=== PATIENT | male | born 1995 | race Caucasian/White ===

== ENCOUNTER 2017-03-11 11:07 | Emergency (ER) | payer BC, OTHER ==
[2017-03-11] MEDS ORDERED: Ondansetron INJ* 2 MG/ML VIAL IV ONE (11:35)
[2017-03-11] MEDS ORDERED: NS 0.9% 1000 ML* 2,000 ML IV ONE (11:35)
[2017-03-11] MEDS ORDERED: Ketorolac INJ* 30 MG/ML 1 ML VIAL IV PUSH ONE (11:36)
[2017-03-11 11:58] LABS: Hematocrit 43 % (42-52); Hemoglobin 14.7 g/dl (14.0-18.0); Mean Corpuscular HGB Conc 34 g/dl (31-36); Mean Corpuscular Hemoglobin 31 pg (27-31); Mean Corpuscular Volume 93 fL (80-94); Mean Platelet Volume 7 um3 (7.4-10.4); Red Blood Count 4.68 10^6/ul (4.0-5.4); Red Cell Distribution Width 13 % (10.5-15); White Blood Count 19.2 10^3/ul (3.5-10.8)
[2017-03-11 12:18] LABS: ALT 39 U/L (7-52); AST 51 U/L (13-39); Albumin 5.2 g/dL (3.2-5.2); Alkaline Phosphatase 77 U/L (34-104); Anion Gap 17 mmol/L (2-11); BUN/Creatinine Ratio 21.9 (8-20); Blood Urea Nitrogen 23 mg/dL (6-24); C Reactive Protein < 1.00 mg/L (< 5.00); CO2 Carbon Dioxide 19 mmol/L (22-32); Chloride 101 mmol/L (101-111); EGFR African American 113.6 (>60); EGFR Non-African American 88.3 (>60); Globulin 2.8 g/dL (2-4); Glucose 74 mg/dL (70-100); Lipase 53 U/L (11.0-82.0); Magnesium 1.9 mg/dL (1.9-2.7); Potassium 4.3 mmol/L (3.5-5.0); Sodium 137 mmol/L (133-145)
[2017-03-11 14:39] VITALS: BP 113/59
--- NOTE | 2017-03-11 15:00 | ED ---
Juanita Hernandez Emily, scribed for Wilbert Covarrubias MD on 03/11/17 at 1141 . Substance Abuse/Use - HPI Summary HPI Summary: This patient is a 21 year old M presenting to [facility] accompanied by friend with a chief complaint of EtOH abuse last night. The patient rates the pain 0/10 in severity. Symptoms aggravated by nothing. Symptoms alleviated by nothing. Patient reports nausea, vomiting, lightheadedness, headache, and weakness. - History Of Current Complaint Chief Complaint: EDNauseaVomitDiarrh Stated Complaint: HANGOVER Time Seen by Provider: 03/11/17 11:15 Hx Obtained From: Patient Severity Initially: Mild Severity Currently: Mild Aggravating Factor(s): Nothing Alleviating Factor(s): Nothing Associated Signs And Symptoms: Nausea, Vomiting, Other: - Positive lightheadedness, headache, and weakness. - Allergies/Home Medications Allergies/Adverse Reactions: Allergies Allergy/AdvReac Type Severity Reaction Status Date / Time No Known Allergies Allergy Verified 07/21/16 14:30 PMH/Surg Hx/FS Hx/Imm Hx Previously Healthy: No Endocrine/Hematology History: Denies: Hx Diabetes, Hx Thyroid Disease Cardiovascular History: Denies: Hx Hypertension, Hx Pacemaker/ICD Respiratory History: Denies: Hx Asthma, Hx Chronic Obstructive Pulmonary Disease (COPD) GI History: Denies: Hx Ulcer History: Denies: Hx Renal Disease Sensory History: Denies: Hx Hearing Aid Psychiatric History: Denies: Hx Panic Disorder - Surgical History Surgery Procedure, Year, and Place: SPLEENECTOMY Infectious Disease History: No Infectious Disease History: Denies: Hx Hepatitis, Hx Human Immunodeficiency Virus (HIV), Traveled Outside the [place] in Last 30 Days - Family History Known Family History: Positive: None - Social History Occupation: Student Alcohol Use: Occasionally Substance Use Type: Reports: None Smoking Status (MU): Never Smoked Tobacco Review of Systems Positive: Vomiting, Nausea Neurological: Other - Lightheadedness Positive: Headache, Weakness All Other Systems Reviewed And Are Negative: Yes Physical Exam - Summary Physical Exam Summary: VITAL SIGNS: Reviewed. GENERAL: ~Patient is a well-developed and nourished male who is lying comfortable in the stretcher. ~Patient is not in any acute respiratory distress. HEAD AND FACE: No signs of trauma. ~No ecchymosis, hematomas or skull depressions. No sinus tenderness. Nasal mucosa dry. EYES: PERRLA, EOMI x 2, No injected conjunctiva, no nystagmus. EARS: Hearing grossly intact. Ear canals and tympanic membranes are within normal limits. MOUTH: Oropharynx within normal limits. Dehydrated, oral mucosa dry. NECK: Supple, trachea is midline, no adenopathy, no JVD, no carotid bruit, no c- spine tenderness, neck with full ROM. CHEST: Symmetric, no tenderness at palpation LUNGS: Clear to auscultation bilaterally. No wheezing or crackles. CVS: Slightly tachycardic, S1 and S2 present, no murmurs or gallops appreciated. ABDOMEN: Soft, non-tender. No signs of distention. No rebound no guarding, and no masses palpated. Bowel sounds are normal. EXTREMITIES: FROM in all major joints, no edema, no cyanosis or clubbing. NEURO: Alert and oriented x 3. No acute neurological deficits. Speech is normal and follows commands. SKIN: Dry and warm Triage Information Reviewed: Yes Vital Signs On Initial Exam: Initial Vitals Temp Pulse Resp BP Pulse Ox 98.3 F 110 18 140/68 98 03/11/17 11:08 03/11/17 11:08 03/11/17 11:08 03/11/17 11:08 03/11/17 11:08 Vital Signs Reviewed: Yes Diagnostics - Vital Signs Vital Signs Temp Pulse Resp BP Pulse Ox 03/11/17 11:08 98.3 F 110 18 140/68 98 - Laboratory Lab Results: Lab Results 03/11/17 03/11/17 Range/Units 11:49 11:49 WBC 19.2 H (3.5-10.8) 10^3/ul RBC 4.68 (4.0-5.4) 10^6/ul Hgb 14.7 (14.0-18.0) g/dl Hct 43 (42-52) % MCV 93 (80-94) fL MCH 31 (27-31) pg MCHC 34 (31-36) g/dl RDW 13 (10.5-15) % Plt Count 404 (150-450) 10^3/ul MPV 7 L (7.4-10.4) um3 Neut % (Auto) 85.1 H (38-83) % Lymph % (Auto) 8.9 L (25-47) % Dickens % (Auto) 4.7 (1-9) % Eos % (Auto) 0.1 (0-6) % Baso % (Auto) 1.2 (0-2) % Absolute Neuts (auto) 16.4 H (1.5-7.7) 10^3/ul Absolute Lymphs (auto) 1.7 (1.0-4.8) 10^3/ul Absolute Monos (auto) 0.9 H (0-0.8) 10^3/ul Absolute Eos (auto) 0 (0-0.6) 10^3/ul Absolute Basos (auto) 0.2 (0-0.2) 10^3/ul Absolute Nucleated RBC 0.01 10^3/ul Nucleated RBC % 0.1 Sodium 137 (133-145) mmol/L Potassium 4.3 (3.5-5.0) mmol/L Chloride 101 (101-111) mmol/L Carbon Dioxide 19 L (22-32) mmol/L Anion Gap 17 H (2-11) mmol/L BUN 23 (6-24) mg/dL Creatinine 1.05 (0.67-1.17) mg/dL Est GFR ( Amer) 113.6 (>60) Est GFR (Non-Af Amer) 88.3 (>60) BUN/Creatinine Ratio 21.9 H (8-20) Glucose 74 (70-100) mg/dL Calcium 10.0 (8.6-10.3) mg/dL Magnesium 1.9 (1.9-2.7) mg/dL Total Bilirubin 0.60 (0.2-1.0) mg/dL AST 51 H (13-39) U/L ALT 39 (7-52) U/L Alkaline Phosphatase 77 (34-104) U/L C-Reactive Protein < 1.00 (< 5.00) mg/L Total Protein 8.0 (6.4-8.9) g/dL Albumin 5.2 (3.2-5.2) g/dL Globulin 2.8 (2-4) g/dL Albumin/Globulin Ratio 1.9 (1-3) Lipase 53 (11.0-82.0) U/L Result Diagrams: 03/11/17 11:49 03/11/17 11:49 Lab Statement: Any lab studies that have been ordered have been reviewed, and results considered in the medical decision making process. Course/Dx - Course Assessment/Plan: This patient is a 21 year old M presenting to [facility] accompanied by friend with a chief complaint of EtOH abuse last night. The patient rates the pain 0/10 in severity. Symptoms aggravated by nothing. Symptoms alleviated by nothing. Patient reports nausea, vomiting, lightheadedness, headache, and weakness. In the ED course an IV access was obtained. Patient was placed in a director of market intelligence. Patient was started with IV fluids. He was given ZOfran for nausea and vomiting and Toradol for a SIEGEL. Labs without any significant abnormality except for. After hydration and medications he is feeling better. He was given a PO challenge and he had no nausea or vomiting. Patient is hemodynamically stable and A+O x 3. I discussed all the findings and test results with the patient. Patient was instructed to return to the emergency room immediately if any of the symptoms return or worsens. Plan of care was discussed with the patient and understands and agrees. All questions were answered at patient satisfaction. There were no further complaints or concerns. Lung exam before discharge: CTA B/L. Good air exchange. No wheezing or crackles heard. CVS: S1 and S2 present. No murmurs appreciated. Patient is alert and oriented x 3. Patient is hemodynamically stable. Patient will be discharged home with follow up PCP in the next 2-3 days - Diagnoses Differential Diagnosis/HQI/PQRI: Positive: Alcohol Abuse, Alcohol Withdrawal, Other - Nause and vomiting Provider Diagnoses: Nausea and vomiting Discharge - Discharge Plan Condition: Stable Disposition: HOME Patient Education Materials: Acute Nausea and Vomiting (ED) Referrals: [facility] - Curt ENRIQUE [Primary Care Provider] - Additional Instructions: RETURN TO THE EMERGENCY DEPARTMENT FOR CHANGING OR WORSENING SYMPTOMS. The documentation as recorded by the Juanita polanco Emily accurately reflects the service I personally performed and the decisions made by , Wilbert Covarrubias MD.
== END 2017-03-11 14:39 | disposition home or self-care (01) ==
LOC: ED 11:07
DX: R11.2 Nausea with vomiting, unspecified (principal); R51 Headache; R53.1 Weakness; H81.49 Vertigo of central origin, unspecified ear; Z90.81 Acquired absence of spleen
CPT/HCPCS: 36415; 80053; 83690; 83735; 85025; 86140; 96361; 96374; 96375; 99282; J1885; J2405

== ENCOUNTER 2017-10-05 00:41 | Emergency (ER) | payer BC, OTHER ==
[2017-10-05 01:01] LABS: ABS Basophils 0.1 10^3/ul (0-0.2); ABS Eosinophils 0.3 10^3/ul (0-0.6); ABS Monocytes 1.1 10^3/ul (0-0.8); ABS Neutrophils 6.4 10^3/ul (1.5-7.7); ABS Nucleated RBC 0 10^3/ul; Eosinophil % 2.6 % (0-6); Hematocrit 43 % (42-52); Hemoglobin 14.7 g/dl (14.0-18.0); Lymphocyte % 33.8 % (25-47); Mean Corpuscular HGB Conc 34 g/dl (31-36); Mean Corpuscular Hemoglobin 31 pg (27-31); Mean Corpuscular Volume 92 fL (80-94); Mean Platelet Volume 6.6 um3 (7.4-10.4); Nucleated Red Blood Cells % 0; Platelet Count 440 10^3/ul (150-450); Red Blood Count 4.69 10^6/ul (4.0-5.4); Red Cell Distribution Width 13 % (10.5-15); White Blood Count 11.9 10^3/ul (3.5-10.8)
[2017-10-05 01:18] LABS: EGFR Non-African American 111.2 (>60)
[2017-10-05] MEDS ORDERED: Pantoprazole IV* 40 MG IV ONE (03:06)
[2017-10-05] MEDS ORDERED: Ketorolac INJ* 30 MG/ML 1 ML VIAL IV PUSH ONE (03:06)
[2017-10-05] MEDS ORDERED: Metoclopramide IV* 5 MG/ML 2 ML VIAL IV ONE (03:06)
[2017-10-05] MEDS ORDERED: NS 0.9% 1000 ML* 1,000 ML IV ONE (03:06)
[2017-10-05] MEDS ORDERED: Iohexol 300* (CONTRAST) 10 ML SDV IV ONE (03:16)
[2017-10-05 06:13] VITALS: BP 124/69
--- NOTE | 2017-10-05 08:17 | RAD ---
INDICATION: Nausea, vomiting, abdominal pain following alcohol ingestion. Previous pancreatic injury and pancreatitis. Post splenectomy. Remote football injury. COMPARISON: No relevant prior exams available on the [facility] PACS for comparison. TECHNIQUE: Multidetector CT images were obtained from the lung bases to the ischial tuberosities with 97 mL Omnipaque 300 IV contrast. Multiplanar reformation. REPORT: Unremarkable visualized inferior thorax. Negative for CT abnormality of the liver or gallbladder. Negative for biliary or pancreatic duct dilatation. Mildly prominent and edematous appearing pancreas with mild peripancreatic edema. Foci of calcification at the anterior superior margin of the pancreatic body likely represents sequela of previous pancreatitis or dystrophic calcification related to previous traumatic injury. Negative for loculated peripancreatic retroperitoneal fluid collections. Post splenectomy Negative for CT abnormality of the upper GI, small bowel, medially extending appendix, or colon. Negative for ascites, free air, hernias. Normal adrenal glands. Unremarkable kidneys with symmetric nephrograms and pyelograms. Unremarkable nondilated ureters and urinary bladder. Unremarkable visualized male urogenital structures. Negative for lymphadenopathy. Normal diameter abdominal aorta and iliac arteries. Physiologic distention of the IVC. Negative for suspicious osseous lesions. IMPRESSION: 1. CT findings consistent with mild pancreatitis with mild pancreatic enlargement and peripancreatic edema. No loculated retroperitoneal fluid collections evident. 2. Foci of calcification at the anterior superior margin of the pancreatic body likely represents sequela of previous pancreatitis or dystrophic calcification related to previous traumatic injury. 3. Negative for biliary or pancreatic duct dilatation. 4. Normal appendix documented.
--- NOTE | 2017-10-05 19:51 | ED ---
Lux Hernandez Rebecca, scribed for Kristian Sellers MD on 10/05/17 at 0257 . Abdominal Pain/Male - HPI Summary HPI Summary: Pt is a 21 y/o M who presents to ED c/o abdominal pain. Pain is located diffusely throughout the abdomen and began earlier today after waking up from a nap. On triage, pain was mild, ranked 3/10 though on examination it is moderate , ranked 4-5/10. Sx aggravated by eating, alleviated by bending over. Additionally noted N/V. Prior similar episode his senior year of high school during which he had a traumatic pancreas injury with no recurrent episodes of pancreatitis since. Confirms EtOH use today - 5-6 mixed drinks prior to nap. 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 - History of Current Complaint Chief Complaint: EDAbdPain Stated Complaint: NAUSEA/VOMITING/ABD PAIN Time Seen by Provider: 10/05/17 02:37 Hx Obtained From: Patient Onset/Duration: Lasting Hours, Still Present Severity Initially: Mild - 3/10 Severity Currently: Moderate Pain Intensity: 5 Pain Scale Used: 0-10 Numeric Location: Diffuse Aggravating Factor(s): Food Alleviating Factor(s): Other: - Bending over Associated Signs And Symptoms: Positive: Nausea, Vomiting - Allergies/Home Medications Allergies/Adverse Reactions: Allergies Allergy/AdvReac Type Severity Reaction Status Date / Time No Known Allergies Allergy Verified 07/21/16 14:30 PMH/Surg Hx/FS Hx/Imm Hx Endocrine/Hematology History: Denies: Hx Diabetes, Hx Thyroid Disease Cardiovascular History: Denies: Hx Hypertension, Hx Pacemaker/ICD Respiratory History: Denies: Hx Asthma, Hx Chronic Obstructive Pulmonary Disease (COPD) GI History: Denies: Hx Ulcer History: Denies: Hx Renal Disease Sensory History: Denies: Hx Hearing Aid Psychiatric History: Denies: Hx Panic Disorder - Surgical History Surgery Procedure, Year, and Place: SPLEENECTOMY Infectious Disease History: No Infectious Disease History: Denies: Hx Hepatitis, Hx Human Immunodeficiency Virus (HIV), Traveled Outside the [place] in Last 30 Days - Family History Known Family History: Negative: Cardiac Disease - Social History Alcohol Use: Occasionally Substance Use Type: Reports: None Smoking Status (MU): Never Smoked Tobacco Review of Systems Negative: Fever Positive: Abdominal Pain, Vomiting, Nausea All Other Systems Reviewed And Are Negative: Yes Physical Exam - Summary Physical Exam Summary: GENERAL: ~Patient is a well developed and nourished M who is lying comfortable in the stretcher. ~Patient is not in any acute respiratory distress. HEAD AND FACE: Normocephalic EYES: PERRLA, EOMI x 2. EARS: Hearing grossly intact. MOUTH: Oropharynx within normal limits. NECK: Supple, trachea is midline, no adenopathy, no JVD, no carotid bruit. CHEST: Symmetric, no tenderness at palpation LUNGS: Clear to auscultation bilaterally. No wheezing or crackles. CVS: Regular rate and rhythm, S1 and S2 present, no murmurs or gallops appreciated. ABDOMEN: Soft, diffusely tender to palpation, worse in the epigastric area. No rebound or guarding. Bowel sounds are normal. No abdominal abnormal pulsations. EXTREMITIES: Full ROM in all major joints, no edema, no cyanosis or clubbing. NEURO: Alert and oriented x 3. No acute neurological deficits. Speech is normal and follows commands. SKIN: Dry and warm Triage Information Reviewed: Yes Vital Signs On Initial Exam: Initial Vitals Temp Pulse Resp BP Pulse Ox 97.8 F 110 16 124/85 99 10/05/17 00:43 10/05/17 00:43 10/05/17 00:43 10/05/17 00:43 10/05/17 00:43 Vital Signs Reviewed: Yes Diagnostics - Vital Signs Vital Signs Temp Pulse Resp BP Pulse Ox 10/05/17 00:43 97.8 F 110 16 124/85 99 - Laboratory Lab Results: Lab Results 10/05/17 10/05/17 10/05/17 Range/Units 00:54 00:54 00:54 WBC 11.9 H (3.5-10.8) 10^3/ul RBC 4.69 (4.0-5.4) 10^6/ul Hgb 14.7 (14.0-18.0) g/dl Hct 43 (42-52) % MCV 92 (80-94) fL MCH 31 (27-31) pg MCHC 34 (31-36) g/dl RDW 13 (10.5-15) % Plt Count 440 (150-450) 10^3/ul MPV 6.6 L (7.4-10.4) um3 Neut % (Auto) 53.6 (38-83) % Lymph % (Auto) 33.8 (25-47) % Door % (Auto) 9.1 H (0-7) % Eos % (Auto) 2.6 (0-6) % Baso % (Auto) 0.9 (0-2) % Absolute Neuts (auto) 6.4 (1.5-7.7) 10^3/ul Absolute Lymphs (auto) 4.0 (1.0-4.8) 10^3/ul Absolute Monos (auto) 1.1 H (0-0.8) 10^3/ul Absolute Eos (auto) 0.3 (0-0.6) 10^3/ul Absolute Basos (auto) 0.1 (0-0.2) 10^3/ul Absolute Nucleated RBC 0 10^3/ul Nucleated RBC % 0 Sodium 139 (139-145) mmol/L Potassium 3.7 (3.5-5.0) mmol/L Chloride 102 (101-111) mmol/L Carbon Dioxide 27 (22-32) mmol/L Anion Gap 10 (2-11) mmol/L BUN 12 (6-24) mg/dL Creatinine 0.86 (0.67-1.17) mg/dL Est GFR ( Amer) 143.0 (>60) Est GFR (Non-Af Amer) 111.2 (>60) BUN/Creatinine Ratio 14.0 (8-20) Glucose 152 H (70-100) mg/dL Lactic Acid 1.3 (0.5-2.0) mmol/L Calcium 9.6 (8.6-10.3) mg/dL Total Bilirubin 0.30 (0.2-1.0) mg/dL AST 35 (13-39) U/L ALT 46 (7-52) U/L Alkaline Phosphatase 68 (34-104) U/L C-Reactive Protein 1.10 (< 5.00) mg/L Total Protein 7.9 (6.4-8.9) g/dL Albumin 5.0 (3.2-5.2) g/dL Globulin 2.9 (2-4) g/dL Albumin/Globulin Ratio 1.7 (1-3) Amylase (29-103) U/L Lipase 118 H (11.0-82.0) U/L 10/05/17 Range/Units 00:54 WBC (3.5-10.8) 10^3/ul RBC (4.0-5.4) 10^6/ul Hgb (14.0-18.0) g/dl Hct (42-52) % MCV (80-94) fL MCH (27-31) pg MCHC (31-36) g/dl RDW (10.5-15) % Plt Count (150-450) 10^3/ul MPV (7.4-10.4) um3 Neut % (Auto) (38-83) % Lymph % (Auto) (25-47) % Door % (Auto) (0-7) % Eos % (Auto) (0-6) % Baso % (Auto) (0-2) % Absolute Neuts (auto) (1.5-7.7) 10^3/ul Absolute Lymphs (auto) (1.0-4.8) 10^3/ul Absolute Monos (auto) (0-0.8) 10^3/ul Absolute Eos (auto) (0-0.6) 10^3/ul Absolute Basos (auto) (0-0.2) 10^3/ul Absolute Nucleated RBC 10^3/ul Nucleated RBC % Sodium (139-145) mmol/L Potassium (3.5-5.0) mmol/L Chloride (101-111) mmol/L Carbon Dioxide (22-32) mmol/L Anion Gap (2-11) mmol/L BUN (6-24) mg/dL Creatinine (0.67-1.17) mg/dL Est GFR ( Amer) (>60) Est GFR (Non-Af Amer) (>60) BUN/Creatinine Ratio (8-20) Glucose (70-100) mg/dL Lactic Acid (0.5-2.0) mmol/L Calcium (8.6-10.3) mg/dL Total Bilirubin (0.2-1.0) mg/dL AST (13-39) U/L ALT (7-52) U/L Alkaline Phosphatase (34-104) U/L C-Reactive Protein (< 5.00) mg/L Total Protein (6.4-8.9) g/dL Albumin (3.2-5.2) g/dL Globulin (2-4) g/dL Albumin/Globulin Ratio (1-3) Amylase 80 (29-103) U/L Lipase (11.0-82.0) U/L Result Diagrams: 10/05/17 00:54 10/05/17 00:54 Lab Statement: Any lab studies that have been ordered have been reviewed, and results considered in the medical decision making process. - CT CT Abd/Pel CT Interpretation Completed By: Radiologist - There is infiltration of the fat within the lesser sac between the pancreas and the stomach wall. This most likely is related to acute pancreatitis. Note also made of clump of calcium along the anterior margin of the pancreatic body/head junction. The pancreas is somewhat enlarged and possibly mildly edematous. No pseudocyst abscess or free fluid or free air. No bowel obstruction. Normal liver. No obvious gallbladder abnormalities. Postsplenectomy. Normal adrenal glands. No urinary tract obstruction or acute renal abnormalities. Osseous structures are intact. ED physician reviewed this radiology report. Re-Evaluation - Re-Evaluation First Eval Re-Evaluation Time: 06:10 Change: Improved Comment: Pt is feeling significantly better. Explained results and return precautions. Abdominal Pain Fem Course/Dx - Course Assessment/Plan: Pt is a 21 y/o M with a PMHx of pancreatitis who presents to ED c/o diffuse abdominal pain with N/V s/p EtOH consumption. Upon reevaluation , he reports feeling significantly better. Discussed results of possible acute pancreatitis seen on the CT. His lipase was 118. I offered the pt admission to be admitted to the hospital however pt refused and said that he would prefer to go home and promises to return if pain returns. Otherwise hemodynamically stable and safe for D/C under very strict return precautions. - Diagnoses Provider Diagnoses: Pancreatitis Discharge - Sign-Out/Discharge Documenting (check all that apply): Discharge/Admit/Transfer - Discharge - Discharge Plan Condition: Stable Disposition: HOME Patient Education Materials: Pancreatitis (ED) Referrals: [facility] - Ruthie ENRIQUEll [Primary Care Provider] - 3 Days Additional Instructions: RETURN TO ED FOR ANY NEW OR WORSENING SYMPTOMS. - Billing Disposition and Condition Condition: STABLE Disposition: HOME The documentation as recorded by the Lux polanco Rebecca accurately reflects the service I personally performed and the decisions made by , Kristian Sellers MD.
== END 2017-10-05 06:21 | disposition home or self-care (01) ==
LOC: ED 00:41
DX: K85.90 Acute pancreatitis without necrosis or infection, unspecified (principal); R11.2 Nausea with vomiting, unspecified; Z90.81 Acquired absence of spleen
CPT/HCPCS: 36415; 74177; 80053; 82150; 83605; 83690; 85025; 86140; 96374; 96375; 99284; J1885; J2765; Q9967